=== PATIENT | female | born 1925 | race Caucasian/White ===

== ENCOUNTER 2016-07-12 19:51 | Inpatient (IN) | payer MEDICARE, OTHER ==
[2016-07-12] MEDS ORDERED: Phenergan 25 MG INJ IV PRN (21:07)
[2016-07-12] MEDS ORDERED: TYLENOL 325 MG PO PRN (21:07)
[2016-07-12] MEDS ORDERED: Sodium Chloride 0.9% 1000 ML 1,000 ML IV STA (21:07)
[2016-07-12] MEDS ORDERED: ROCEPHIN 1 Gm-D5w 50 ml Bag** 50 ML IV SCH (21:15)
[2016-07-12 21:39] LABS: BASOPHIL % 0.2 % (0.0-0.4); Eosinophil % 0.2 % (0.00-5.0); Granulocytes % 80.5 % (36.0-66.0); Lymphocytes % 12.6 % (24.0-44.0); Mean Cell Volume 88.9 fl (78-100); Mean Platelet Volume 9.4 fl (6-9.5); Monocytes % 6.5 % (0.0-12.0); Platelet Count 222 K/mm3 (150-450); Red Blood Count 5.48 M/mm3 (4.1-5.4); Red Cell Distribution Width 14.8 % (11.5-14.0); White Blood Count 9.8 K/mm3 (4.0-10.5)
[2016-07-12 21:41] LABS: Mean Corpuscular Hemoglobin 30.2 pg (26-32)
[2016-07-12 21:58] LABS: ALBUMIN 2.9 g/dL (3.4-5.0); ANION GAP 11.3 MEQ/L (5-15); BILIRUBIN,TOTAL 0.4 mg/dL (0.2-1.0); Carbon Dioxide 26.8 mEq/L (21-32); Potassium 4.1 mEq/L (3.5-5.1); Total Protein 7.1 gm/dL (6.4-8.2)
[2016-07-12] MEDS: Tamiflu 75MG Capsule PO SCH (23:23)
[2016-07-13] MEDS: Dextrose 5% -0.45 NaCl 1000 ML 1,000 ML IV SCH ×2 (03:54→23:43)
--- NOTE | 2016-07-13 08:27 | PCM.HP ---
History of Present Illness - Chief Complaint Chief Complaint: fever, dehydration Date: 07/13/16 History of Present Illness: is a 89 year old female. with moderate to severe dementia from [facility] There has been an outbreak of influenza A at the correction and she has been symptomatic since yesterday with fever confusion and was evaluated yesterday evening was not responsive only briefly opened eyes which is abnormal for her. She had rhonchi bilaterally and was diaphoretic and sent for direct admission. She has been more alert overnight and is eating this am. Medications & Allergies Home Medications: Home Medication List Amlodipine Besylate [Norvasc] 5 mg PO DAILY 12/18/12 [History Confirmed 07/13/16 ] Aspirin 81 gm Chew [Baby Aspirin 81 mg Chew] 81 mg PO DAILY 12/18/12 [ History Confirmed 07/13/16] Donepezil HCl 10 mg [Aricept 10 MG] 10 mg PO HS 12/18/12 [History Confirmed 07/12/16] Levothyroxine Sodium 100 Mcg [Synthroid 100 Mcg] 100 mcg PO DAILY 12/18/12 [History Confirmed 07/12/16] Potassium Chloride 10 Meq Tab* [Klor Con 10 MEQ] 30 meq PO DAILY 12/18/12 [ History Confirmed 07/12/16] Acetaminophen 325 mg [Tylenol 325 mg] 650 mg PO Q4H PRN 12/19/12 [History Confirmed 07/13/16] Enema Bag, Disposable [Enema Bag] 1 each RC DAILY PRN 12/19/12 [History Confirmed 07/12/16] Magnesium Hydroxide 30 ml [Milk of Magnesia 30 ml] 30 ml PO DAILY PRN [History Confirmed 07/12/16] Allergies/Adverse Reactions: Allergies Allergy/AdvReac Type Severity Reaction Status Date / Time No Known Drug Allergies Allergy Unverified 12/18/12 19:18 - Past Medical History Past Medical History: Yes Neurological History: Alzheimer's Disease, Dementia, Stroke Cardiac History: Coronary Artery Disease, High Cholesterol, Hypertension Endocrine Medical History: Hypothyroidism GI Medical History: GERD - Female History Are you now?: No - Past Surgical History Past Surgical History: Yes Neuro Surgical History: No Pertinent History Cardiac History: Cardiac Catheterization Respiratory Surgery: No Pertinent History GI Surgical History: Appendectomy, Cholecystectomy Genitourinary Surgical Hx: No Pertinent History Female Surgical History: Hysterectomy Other Surgical History: pt confused unable to obtain accurate information. med records from the correction provided and pt son was able to provide some history. - Social History Smoking Status: Never smoker Exposure to second hand smoke: No Alcohol: None Drug Use: none Significant Family History: no pertinent family hx - Physical Exam Vital Signs: Vital Signs - 24 hr Temp Pulse Resp BP Pulse Ox 07/13/16 07:27 97.9 F 100 H 18 181/76 94 L 07/13/16 04:57 99.4 F 07/13/16 04:00 100.1 F 108 H 19 143/88 90 L 07/13/16 03:33 100.9 F 07/13/16 00:00 99.2 F 07/12/16 21:45 110 H 20 95 07/12/16 20:50 99.8 F 105 H 18 135/65 95 General Appearance: alert Neurologic Exam: alert, cooperative, sensation nml, No oriented x 3, No motor deficits Eye Exam: PERRL/EOMI, eyes nml inspection, No scleral icterus Ears, Nose, Throat Exam: normal ENT inspection, TMs normal, moist mucous membranes, dry mucous membranes Neck Exam: normal inspection, non-tender, supple, full range of motion Respiratory Exam: normal breath sounds, lungs clear, No respiratory distress Cardiovascular Exam: regular rate/rhythm, normal peripheral pulses, murmur, No edema Gastrointestinal/Abdomen Exam: soft, normal bowel sounds, No tenderness, No mass Back Exam: normal inspection, normal range of motion, No CVA tenderness, No vertebral tenderness Extremity Exam: normal inspection, normal range of motion, pelvis stable Skin Exam: normal color, warm, dry, No rash Lymphatic Exam: No adenopathy Results - Labs Lab/Micro Results: Lab Results-Last 24 Hours 07/12/16 07/12/16 07/12/16 Range/Units 21:30 21:30 21:30 WBC 9.8 (4.0-10.5) K/mm3 RBC 5.48 H (4.1-5.4) M/mm3 Hgb 16.6 H (12.0-16.0) gm/dl Hct 48.7 H (35-47) % MCV 88.9 (78-100) fl MCH 30.2 (26-32) pg MCHC 34.1 (32-36) g/dl RDW 14.8 H (11.5-14.0) % Plt Count 222 (150-450) K/mm3 MPV 9.4 (6-9.5) fl Gran % 80.5 H (36.0-66.0) % Lymphocytes % 12.6 L (24.0-44.0) % Monocytes % 6.5 (0.0-12.0) % Eosinophils % 0.2 (0.00-5.0) % Basophils % 0.2 (0.0-0.4) % Basophils # 0.02 (0-0.4) Sodium 138 (136-145) mEq/L Potassium 4.1 (3.5-5.1) mEq/L Chloride 104 (98-107) mEq/L Carbon Dioxide 26.8 (21-32) mEq/L Anion Gap 11.3 (5-15) MEQ/L BUN 13 (9-20) mg/dL Creatinine 1.01 (0.55-1.30) mg/dl Estimated GFR 55 ML/MIN Glucose 124 H (70-110) MG/DL Calcium 8.5 (8.5-10.1) mg/dL Total Bilirubin 0.4 (0.2-1.0) mg/dL AST 16 (15-37) U/L ALT 11 L (12-78) U/L Alkaline Phosphatase 89 (46-116) U/L Serum Total Protein 7.1 (6.4-8.2) gm/dL Albumin 2.9 L (3.4-5.0) g/dL Influenza Type A Ag POSITIVE (NEGATIVE) Influenza Type B Ag NEGATIVE (NEGATIVE) RSV (PCR) NEGATIVE (Negative) - Radiology Impressions Radiology Exams & Impressions: Radiology Procedures Category Date Time Status CHEST 1 VIEW (PORTABLE) Stat Exams 07/12/16 21:07 Taken Assessment/Plan (1) Influenza A Current Visit: Yes Status: Acute Assessment & Plan: tamiflu continue she has improved some overnight with the hydration and fever control she is more responsive today and eating again with assistance still not at her normal level continue the iv hydration monitor for any new or worsening symptoms hope to be functional enough for discharge back to [facility] tomorrow. Code(s): J10.1 - FLU DUE TO OTH IDENT INFLUENZA VIRUS W OTH RESP MANIFEST (2) Dehydration Current Visit: Yes Status: Acute Code(s): E86.0 - DEHYDRATION (3) Dementia Current Visit: Yes Status: Acute Qualifiers: Dementia type: Alzheimer's disease Code(s): F03.90 - UNSPECIFIED DEMENTIA WITHOUT BEHAVIORAL DISTURBANCE
--- NOTE | 2016-07-13 08:54 | XRAY ---
Indication: Cough. Comparison: December 18, 2012. Portable chest slightly underinflated and clear. Heart and mediastinal structures within normal limits for AP portable technique. Bony thorax intact again with mild osteopenia and degenerative changes. Impression: Stable nonacute underinflated chest with chronic features.
[2016-07-13] MEDS ORDERED: BABY ASPIRIN 81 MG CHEW PO SCH (10:00)
[2016-07-13] MEDS: Tamiflu 75MG Capsule PO SCH ×2 (10:06→22:57)
[2016-07-13] MEDS: SYNTHROID 100 MCG PO SCH (10:06)
[2016-07-13] MEDS: ECOTRIN 81 MG PO SCH (10:06)
[2016-07-13] MEDS: NORVASC 5 MG PO SCH (10:06)
[2016-07-13] MEDS: Klor Con 10 MEQ PO SCH (10:06)
[2016-07-13] MEDS: Miralax Powder 17GM PACKET PO SCH (10:06)
[2016-07-13] MEDS: ENOXAPARIN SODIUM SQ SCH (10:07)
[2016-07-13 14:47] LABS: Collection Type VOID; Ph 5.5 (5-6)
[2016-07-13 14:48] LABS: Bacteria FEW /HPF (NEGATIVE); COMPLETE URINE MICROSCOPIC? YES; Epithelial Cells RARE /HPF (FEW); Mucus SLIGHT /HPF (NEGATIVE)
[2016-07-13] MEDS ORDERED: ROCEPHIN 1 Gm-D5w 50 ml Bag** 50 ML IV SCH (22:00)
[2016-07-13] MEDS ORDERED: Aricept 10 MG PO SCH (22:00)
[2016-07-14 07:36] VITALS: BP 131/62; PULSE 85; O2SAT 94
--- NOTE | 2016-07-14 08:10 | PCM.DCORD ---
- Discharge Discharge Date: 07/14/16 Disposition: DC TO [facility] Condition: Fair Prescriptions: New Oseltamivir 75 mg [Tamiflu 75MG Capsule] 75 mg PO BID #0 cap Continue Potassium Chloride 10 Meq Tab* [Klor Con 10 MEQ] 30 meq PO DAILY Levothyroxine Sodium 100 Mcg [Synthroid 100 Mcg] 100 mcg PO DAILY Donepezil HCl 10 mg [Aricept 10 MG] 10 mg PO HS Aspirin 81 gm Chew [Baby Aspirin 81 mg Chew] 81 mg PO DAILY Amlodipine Besylate [Norvasc] 5 mg PO DAILY Enema Bag, Disposable [Enema Bag] 1 each RC DAILY PRN PRN Reason: Constipation Magnesium Hydroxide 30 ml [Milk of Magnesia 30 ml] 30 ml PO DAILY PRN PRN Reason: Constipation Acetaminophen 325 mg [Tylenol 325 mg] 650 mg PO Q4H PRN PRN Reason: pain/fever
[2016-07-14] MEDS: NORVASC 5 MG PO SCH (10:11)
[2016-07-14] MEDS: Tamiflu 75MG Capsule PO SCH (10:11)
[2016-07-14] MEDS: SYNTHROID 100 MCG PO SCH (10:11)
[2016-07-14] MEDS: ENOXAPARIN SODIUM SQ SCH (10:11)
[2016-07-14] MEDS: ECOTRIN 81 MG PO SCH (10:11)
[2016-07-14] MEDS: Klor Con 10 MEQ PO SCH (10:11)
[2016-07-14] MEDS: Miralax Powder 17GM PACKET PO SCH (10:12)
--- NOTE | 2016-07-14 18:38 | PCM.DS ---
Discharge Summary Date of Admission: 07/12/16 20:49 Date of Discharge: 07/14/16 Admitting Physician: JANETTE CALERO Primary Care Provider: JANETTE CALERO Allergies Allergies No Known Drug Allergies Allergy (Unverified 12/18/12 19:18) Hospital Summary - Hospital Course Hospital Course: She developed influenza A and was febrile and unresponsive unable to awaken to eat or drink which is abnormal for her. SHe was direct admitted from the sn[facility] for further evaluation and treatment. She was started on tamiflu and cxr and ua were unremarkable. Labs were rather unremarkable. She responded well to rehydration with iv fluids and became more alert and was eating and drinking again per her normal. She has severe dementia at baseline and was back near her baseline functional status although still with intermittent fevers from the influenza. She is thus discharged back to [facility] for finish her tamiflu coarse and continued care for her dementia. - Vitals & Intake/Output Vital Signs: Vital Signs Temperature 99.3 F 07/14/16 07:35 Pulse Rate 85 07/14/16 07:35 Respiratory Rate 20 07/14/16 07:35 Blood Pressure 131/62 07/14/16 07:35 O2 Sat by Pulse Oximetry 94 L 07/14/16 07:35 Intake & Output: Intake & Output 07/12/16 07/13/16 07/14/16 07/15/16 11:59 11:59 11:59 11:59 Intake Total 1850 2767 Balance 1850 2767 Weight 65.136 kg - Lab Result Diagrams: 07/12/16 21:30 07/12/16 21:30 Micro Results-Entire Visit: Microbiology 07/12/16 21:57 Blood Culture - Preliminary Blood NO GROWTH TO DATE 07/12/16 21:30 Blood Culture - Preliminary Blood NO GROWTH TO DATE 07/13/16 14:00 Urine Culture - Preliminary Clean Catch Midstream NO GROWTH TO DATE - Radiology Exams Ordered Rad Exams-Entire Visit: Radiology Procedures Category Date Time Status CHEST 1 VIEW (PORTABLE) Stat Exams 07/12/16 21:07 Completed - Procedures and Test Procedures and Tests throughout Hospitalization: Therapy Orders & Screens 07/12/16 21:07 EKG STAT Comment: Respiratory Therapy Consult ROUTINE Comment: Reason For Exam: Discharge Exam General Appearance: no apparent distress Neurologic Exam: alert, cooperative, No oriented x 3 Skin Exam: warm, dry Eye Exam: No eyes nml inspection, No scleral icterus Ears, Nose, Throat Exam: moist mucous membranes Neck Exam: normal inspection, non-tender, supple Respiratory Exam: normal breath sounds, lungs clear Cardiovascular Exam: regular rate/rhythm, murmur Gastrointestinal/Abdomen Exam: soft, normal bowel sounds, No tenderness, No distention Extremity Exam: normal inspection, No calf tenderness, No pedal edema Final Diagnosis/Problem List - Final Discharge Diagnosis/Problem (1) Influenza A Status: Acute (2) Dehydration Status: Acute (3) Dementia Status: Acute - Discharge Disposition: Skilled Care @ [facility] Condition: Fair Prescriptions: New Oseltamivir 75 mg [Tamiflu 75MG Capsule] 75 mg PO BID #0 cap Continue Potassium Chloride 10 Meq Tab* [Klor Con 10 MEQ] 30 meq PO DAILY Levothyroxine Sodium 100 Mcg [Synthroid 100 Mcg] 100 mcg PO DAILY Donepezil HCl 10 mg [Aricept 10 MG] 10 mg PO HS Aspirin 81 gm Chew [Baby Aspirin 81 mg Chew] 81 mg PO DAILY Amlodipine Besylate [Norvasc] 5 mg PO DAILY Enema Bag, Disposable [Enema Bag] 1 each RC DAILY PRN PRN Reason: Constipation Magnesium Hydroxide 30 ml [Milk of Magnesia 30 ml] 30 ml PO DAILY PRN PRN Reason: Constipation Acetaminophen 325 mg [Tylenol 325 mg] 650 mg PO Q4H PRN PRN Reason: pain/fever Additional Instructions: [facility] JAIL ORDERS: SEE ATTACHED MED LIST FOR CURRENT MED ORDERS PUREED DIET CONTINUE ALL OTHER JAIL ORDERS Follow up with: BASSAM CLEMENT [Family Provider] - 1 Week (DR. CALERO TO SEE AT [facility]) Forms: Ambulance Transport Record, Discharge Skin Assessment, Transfer Record Long-Term
== END 2016-07-14 11:05 | DRG 195 ==
LOC: OBSVTOIN 20:49 → MED SURG 20:49
PROVIDERS: ADMIT Family Medicine; ATTEND Family Medicine
DX: J10.1 Influenza due to other identified influenza virus with other respiratory manifestations (principal); E86.0 Dehydration; F03.90 Unspecified dementia, unspecified severity, without behavioral disturbance, psychotic disturbance, mood disturbance, and anxiety; G30.9 Alzheimer's disease, unspecified; F02.80 Dementia in other diseases classified elsewhere, unspecified severity, without behavioral disturbance, psychotic disturbance, mood disturbance, and anxiety; I25.10 Atherosclerotic heart disease of native coronary artery without angina pectoris; I10 Essential (primary) hypertension; E03.9 Hypothyroidism, unspecified; K21.9 Gastro-esophageal reflux disease without esophagitis; Z79.899 Other long term (current) drug therapy
CPT/HCPCS: 36415; 71010; 80053; 81000; 85025; 87040; 87086; 87631; 93005; 94760; J0696; J1650